=== PATIENT | male | born 1955 | race Caucasian/White ===

== ENCOUNTER 2016-07-30 12:45 | Emergency (ER) | payer BC, OTHER ==
[2016-07-30 13:11] VITALS: BMI 32.0
[2016-07-30 13:15] VITALS: TEMP 97.6
[2016-07-30] MEDS ORDERED: Albuterol-Ipratrop 3 mg / 0.5 (3 ml) UD IH STA (13:19)
--- NOTE | 2016-07-30 13:34 | C.PDOC ---
History Of Present Illness 60-year-old male, PMHx includes Hypertension, presents to the emergency department with complaints of one-week duration of productive cough with white sputum, that is associated with shortness of breath and back pain when he coughs. 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 Patient denies fevers, nausea/vomiting , abdominal pain, or any other associated symptoms. No other complaints at this time. PMD Tad Foley MD. Time Seen by Provider: 07/30/16 13:03 Chief Complaint (Nursing): Shortness Of Breath History Per: Patient History/Exam Limitations: no limitations Onset/Duration Of Symptoms: Days Current Symptoms Are (Timing): Still Present Past Medical History Reviewed: Historical Data, Nursing Documentation, Vital Signs Vital Signs: Last Vital Signs Temp 97.6 F 07/30/16 12:50 Pulse 71 07/30/16 14:04 Resp 19 07/30/16 14:43 BP 122/84 07/30/16 14:04 Pulse Ox 93 L 07/30/16 14:50 - Medical History PMH: HTN Family History: States: Unknown Family Hx - Social History Hx Tobacco Use: No Hx Alcohol Use: No Hx Substance Use: No - Immunization History Hx Tetanus Toxoid Vaccination: No Hx Influenza Vaccination: No Hx Pneumococcal Vaccination: No Review Of Systems Except As Marked, All Systems Reviewed And Found Negative. Constitutional: Negative for: Fever Cardiovascular: Negative for: Chest Pain Respiratory: Positive for: Cough, Shortness of Breath, Sputum, Wheezing Gastrointestinal: Negative for: Nausea, Vomiting Musculoskeletal: Positive for: Back Pain (Secondary to cough) Neurological: Negative for: Weakness, Numbness, Headache, Dizziness Physical Exam - Physical Exam Appears: Non-toxic, No Acute Distress, Other (speaking in full sentences.) Skin: Warm, Dry, No Rash Head: Atraumatic Eye(s): bilateral: Normal Inspection, PERRL Nose: Normal Oral Mucosa: Moist Lips: Normal Appearing Neck: Normal ROM Cardiovascular: Rhythm Regular, No Murmur Respiratory: No Accessory Muscle Use, Wheezing (Diffuse, expiratory) Extremity: Normal ROM Neurological/Psych: Oriented x3 ED Course And Treatment - Laboratory Results Result Diagrams: 07/30/16 13:44 07/30/16 13:44 O2 Sat by Pulse Oximetry: 93 - Radiology CXR: Viewed By Me, Read By Radiologist (Subsegmental lower lobe atelectasis.) Medical Decision Making Medical Decision MakinPM the pt is sitting up, no distress, wheezing resolved, nl spo2 on RA. he is comfortable w dc. follow up and return precautions advised. Disposition - Disposition Referrals: Tad Foley MD [Staff Provider] - Disposition: HOME/ ROUTINE Disposition Time: 14:45 Condition: IMPROVED Additional Instructions: Please follow up with your doctor. Return to the ER for any worsening symptoms or for any other concerns. Prescriptions: Albuterol HFA [Ventolin HFA 90 mcg/actuation (8 g)] 1 - 2 puff IH Q6H PRN #1 inhaler PRN Reason: Wheezing Azithromycin 250 mg PO DAILY #6 tab Instructions: Acute Bronchitis (ED) Forms: Gen Discharge Inst Macedonian Print Language: IRANIAN - Clinical Impression Clinical Impression: Bronchitis - Scribe Statement The provider has reviewed the documentation as recorded by the Bryceibward Kruse All medical record entries made by the Scribe were at my direction and personally dictated by me. I have reviewed the chart and agree that the record accurately reflects my personal performance of the history, physical exam, medical decision making, and the department course for this patient. I have also personally directed, reviewed, and agree with the discharge instructions and disposition.
--- NOTE | 2016-07-30 13:43 | RAD ---
HISTORY: sob COMPARISON: None available TECHNIQUE: Chest, one view. FINDINGS: Examination limited by habitus. LUNGS: Subsegmental lower lobe atelectasis. Please note that chest x-ray has limited sensitivity for the detection of pulmonary masses. PLEURA: No significant pleural effusion identified. No definite pneumothorax . CARDIOVASCULAR: Heart size appears top normal. Ectatic aorta. OSSEOUS STRUCTURES: Degenerative changes of the spine. VISUALIZED UPPER ABDOMEN: Unremarkable. OTHER FINDINGS: None. IMPRESSION: Subsegmental lower lobe atelectasis.
[2016-07-30] MEDS ORDERED: Albuterol-Ipratrop 3 mg / 0.5 (3 ml) UD ONE (13:45)
[2016-07-30] MEDS ORDERED: MethylPREDNISolone 40 mg Vial ONE (13:45)
[2016-07-30 13:50] LABS: BASO # 0.1 K/uL (0.0-0.2); BASO % 1.2 % (0.0-2.0); EOS # 0.2 K/uL (0.0-0.7); EOS % 2.2 % (0.0-4.0); HEMATOCRIT 42.3 % (35.0-51.0); LYMPH % 19.9 % (20.0-40.0); MEAN CELL VOLUME 86.7 fL (80.0-94.0); MEAN CORPUSCULAR HEMOGLOBIN 28.6 pg (27.0-31.0); MEAN PLATELET VOLUME 7.3 fL (7.2-11.7); MONO % 9.9 % (0.0-10.0); RED CELL DISTRIBUTION WIDTH 13.6 % (11.5-14.5); WHITE BLOOD COUNT 9.9 K/uL (4.8-10.8)
[2016-07-30 13:57] LABS: CHLORIDE 99 mmol/L (98-107); SODIUM 140 mmol/L (132-148)
[2016-07-30 13:58] LABS: POTASSIUM 3.9 mmol/L (3.6-5.2)
[2016-07-30 14:00] LABS: ALB/GLOB RATIO 1.6 (1.0-2.1); ALKALINE PHOSPHATASE 127 U/L (38-126); AST/SGOT 34 U/L (17-59); BILIRUBIN,TOTAL 0.6 mg/dL (0.2-1.3); BLOOD UREA NITROGEN 15 mg/dL (9-20); CARBON DIOXIDE 30 mmol/L (22-30); GFR AFRICAN-AMERICAN > 60; GLUCOSE,RANDOM 97 mg/dL (75-110); TOTAL PROTEIN 8.2 g/dL (6.3-8.3)
[2016-07-30 14:01] LABS: ALT/SGPT 32 U/L (21-72); CALCIUM 9.2 mg/dl (8.6-10.4)
[2016-07-30 14:05] VITALS: BP 122/84; PULSE 71
[2016-07-30 14:43] VITALS: RESP 19
[2016-07-30 14:47] VITALS: O2SAT 93
== END 2016-07-30 14:52 | disposition home or self-care (01) ==
LOC: C.ER 12:45
DX: J40 Bronchitis, not specified as acute or chronic (principal)
CPT/HCPCS: 71010; 80053; 85025; 94640; 96374; 99284; J2930

== ENCOUNTER 2017-11-14 09:36 | Day surgery (SDC) | payer OTHER ==
[2017-11-13 11:40] VITALS: BMI 32.9
[~2017-11-14 09:36] MED LIST: Absorbable Gelatin Sponge Size 12-7 ONE
[2017-11-14 10:28] LABS: BASO % 0.2 % (0.0-2.0); EOS # 0.7 K/uL (0.0-0.7); HEMOGLOBIN 13.3 g/dL (12.0-18.0); LYMPH # 2.4 K/uL (1.0-4.3); LYMPH % 28.6 % (20.0-40.0); MEAN CELL VOLUME 84.8 fL (80.0-94.0); MEAN CORPUSCULAR HGB CONC 34.2 g/dL (33.0-37.0); MEAN PLATELET VOLUME 7.1 fL (7.2-11.7); MONO # 0.9 K/uL (0.0-0.8); MONO % 10.8 % (0.0-10.0); NEUT # 4.3 K/uL (1.8-7.0); NEUT % 52.4 % (50.0-75.0); RBC 4.58 Mil/uL (4.40-5.90); RED CELL DISTRIBUTION WIDTH 14.1 % (11.5-14.5); WHITE BLOOD COUNT 8.2 K/uL (4.8-10.8)
[2017-11-14 10:37] LABS: INR 1.1; PROTHROMBIN TIME 11.9 SECONDS (9.7-12.2)
[2017-11-14 10:43] LABS: BLOOD UREA NITROGEN 13 mg/dL (9-20); CALCIUM 9.1 mg/dl (8.6-10.4); GFR NON-AFRICAN AMERICAN > 60
[2017-11-14] MEDS ORDERED: Midazolam 2 MG/2 ML VIAL ONE (11:11)
--- NOTE | 2017-11-14 11:54 | CP.SDSHP ---
Same Day Surgery H & P - History Proposed Procedure: CT guided left lung nodule biopsy Pre-Op Diagnosis: lung nodule - Allergies Allergies: Allergies No Known Allergies Allergy (Verified 07/30/16 13:11) - Physical Exam Mental Status: Alert & Oriented x3 Neuro: WNL Heart: WNL Lungs: WNL - Impression Impression: Pt with left lower lobe lung nodule. Plan CT guided biopsy. Informed consent and risk of pneumothorax requiring chest tube explained to the patient. Pt. Evaluated Today:Candidate for Anesthesia & Procedure: Yes (ASA 3 Malampati 3) - Date & Time Date: 11/14/17 Time: 11:00 Short Stay Discharge - Short Stay Discharge Admitting Diagnosis/Reason for Visit: SOLITARY PULMONARY NODULE Disposition: HOME/ ROUTINE
--- NOTE | 2017-11-14 11:55 | PCM.SURG1 ---
Surgeon's Initial Post Op Note - Surgeon's Notes Surgeon: Marcial Smith MD Implementation Manager: NONE Type of Anesthesia: IV Sedation, Local Pre-Operative Diagnosis: Left lung nodule Operative Findings: CT showed 1 cm left lung nodule and another 1.5 cm are of possible atelectasis. Post-Operative Diagnosis: Left lung nodule Operation Performed: CT guided biopsy Specimen/Specimens Removed: 20-gauge core x 2 Estimated Blood Loss: EBL {In ML}: 0 Blood Products Given: N/A Drains Used: No Drains Post-Op Condition: Good Date of Surgery/Procedure: 11/14/17 Time of Surgery/Procedure: 11:45
--- NOTE | 2017-11-14 12:09 | CT ---
PROCEDURE: Date of procedure: 11/14/2017 Procedure: 1. CT-guided lung mass biopsy, CPT [address] Guidance for biopsy, 90083 Radiation: 769.46mGy-cm Medications: The patient was sedated by anesthesiologist along with physiologic monitoring. HISTORY: Left lower lobe lung nodule TECHNIQUE: Following informed consent, the Pt's chest was marked. The Pt was placed prone on the CT table and procedure time out was performed. A noncontrast CT scan was performed. Noncontrast CT scan confirmed the presence of a 1 centimeter nodular opacity left lower larger area of possible atelectasis or scarring is also present adjacent to the nodular density. A skin localizer was placed on the patient's left back and a repeat CT scan was performed. The skin was marked, prepped, and draped in the usual sterile fashion. After the skin was anesthetized with lidocaine and the patient sedated by the anesthesiologist, a 20 gauge core needle was advanced percutaneously under direct CT guidance into the mass. Upon confirmation of needle position, two 20-gauge core specimens were obtained and sent for routine pathology. The needle was removed and a xeroform dressing was applied. A post biopsy CT scan showed no pneumothorax. IMPRESSION: CT guided core biopsy left lower lobe lung nodule.
--- NOTE | 2017-11-14 13:25 | RAD ---
Date of service: 11/14/2017 PROCEDURE: CHEST RADIOGRAPH, 1 VIEW HISTORY: Status post left lung nodule biopsy COMPARISON: Images from CT guided biopsy procedure performed earlier the same day FINDINGS: LUNGS: Left lower lobe nodular density. No focal consolidation. PLEURA: No pneumothorax or pleural fluid seen. CARDIOVASCULAR: Atherosclerotic aortic calcifications. Cardiomediastinal silhouette stably enlarged. OSSEOUS STRUCTURES: Unchanged. VISUALIZED UPPER ABDOMEN: Normal. OTHER FINDINGS: None. IMPRESSION: No evidence of pneumothorax post left lower lobe nodule biopsy.
--- NOTE | 2017-11-17 11:42 | CARD ---
APPROVED REPORT Date of service: 11/14/2017 EKG Measurement Heart [id number] <Conclusion> Normal sinus rhythm Normal ECG
== END 2017-11-14 14:00 | disposition home or self-care (01) ==
LOC: C.SPRAD 09:36
PROVIDERS: ATTEND Radiology Vascular & Interventional Radiology
DX: R91.1 Solitary pulmonary nodule (principal)
CPT/HCPCS: 32405; 36415; 71045; 77012; 80048; 85025; 85610; 85730; 88305; 93005; J2250; J3010